=== PATIENT | female | born 1950 | race Caucasian/White ===

== ENCOUNTER 2018-09-01 09:49 | Emergency (ER) | payer BC, OTHER ==
[~2018-09-01] VITALS: Ht 162.6 cm; Wt 61.2 kg
[2018-09-01 09:54] VITALS: BP 189/85
[2018-09-01] MEDS ORDERED: IBUPROFEN 800 MG TAB PO ONE (10:30)
== END 2018-09-01 10:54 | disposition home or self-care (01) ==
LOC: ER 09:49
DX: S52.572A Other intraarticular fracture of lower end of left radius, initial encounter for closed fracture (principal); Z88.0 Allergy status to penicillin; W50.0XXA Accidental hit or strike by another person, initial encounter; Y93.89 Activity, other specified; Y99.8 Other external cause status; Y92.39 Other specified sports and athletic area as the place of occurrence of the external cause
CPT/HCPCS: 29125; 73110

== ENCOUNTER 2020-03-29 11:51 | Emergency (ER) | payer OTHER ==
[~2020-03-29] VITALS: Ht 162.6 cm; Wt 62.6 kg
[2020-03-29 12:00] VITALS: BP 146/71
[2020-03-29] MEDS ORDERED: cefTRIAXone SOD 1,000 MG VL IM ONE (15:15)
[2020-03-29] MEDS ORDERED: cefTRIAXone SOD 1,000 MG VL ONE (15:16)
== END 2020-03-29 16:25 | disposition home or self-care (01) ==
LOC: ER 11:51
DX: J12.9 Viral pneumonia, unspecified (principal); Z20.828 Contact with and (suspected) exposure to other viral communicable diseases
CPT/HCPCS: 36415; 71045; 87426; 93005; 96372; 99285; C9803; J0696; U0003